=== PATIENT | female | born 1985 | race Hispanic/Latino ===

== ENCOUNTER 2021-02-19 09:09 | Outpatient (CLI) | payer OTHER ==
[2021-02-19 21:46] LABS: SARS-CoV-2 PCR by NAA Not Detected (NotDetected)
== END 2021-02-19 09:10 | disposition home or self-care (01) ==
LOC: CSHLAB 09:09
PROVIDERS: ATTEND Family Medicine
DX: Z20.822 Contact with and (suspected) exposure to COVID-19 (principal)
CPT/HCPCS: U0003; U0005

== ENCOUNTER 2021-02-22 19:05 | Inpatient (IN) | payer MEDICAID, OTHER, SELFPAY ==
[~2021-02-22 19:05] MED LIST: Bupivacaine 0.25% HCL 30 ML VIAL ONE
[2021-02-22] MEDS ORDERED: Acetaminophen 500 MG TAB PO PRN (20:45)
[2021-02-22] MEDS ORDERED: Carboprost 250 MCG/ML AMP IM PRN (20:45)
[2021-02-22] MEDS ORDERED: Ondansetron PF 4 MG/2 ML Vial IVP PRN ×2 (20:45→23:21)
[2021-02-22] MEDS ORDERED: Misoprostol 200 MCG TAB PR PRN (20:45)
[2021-02-22] MEDS ORDERED: hydrALAZINE 20 MG/ML VIAL SLOW IVP PRN (20:45)
[2021-02-22] MEDS ORDERED: NS w/ Oxytocin 30 units 500 ML IV SCH (20:45)
[2021-02-22] MEDS ORDERED: NS w/ Oxytocin 30 units 500 ML IVPB SCH (20:45)
[2021-02-22] MEDS ORDERED: Methylergonovine 0.2 MG/ML VIAL IM PRN (20:45)
[2021-02-22] MEDS ORDERED: Lidocaine 1% (PF) 30 ML VIAL SC PRN (20:45)
[2021-02-22] MEDS ORDERED: Misoprostol 100 MCG TAB VAG SCH ×2 (20:45)
[2021-02-22] MEDS ORDERED: Ibuprofen 800 MG TAB PO PRN (20:45)
[2021-02-22] MEDS ORDERED: Promethazine HCl 25 MG/ML VIAL IM PRN ×2 (20:45→23:21)
[2021-02-22] MEDS: Lactated Ringer's 1,000 ML IV SCH ×2 (20:45→23:01)
[2021-02-22] MEDS ORDERED: Butorphanol Tartrate 1 MG/ML VIAL SLOW IVP PRN (20:45)
[2021-02-22 21:23] LABS: Hemoglobin 12.5 g/dL (12.0-15.5); Mean Corpuscular HGB CONC 34.6 g/dL (32.0-36.0); Mean Corpuscular Hemoglobin 30.3 pg (27.0-33.0); Mean Corpuscular Volume 87.4 fl (81.6-98.3); Mean Platelet Volume 11.2 fl (7.4-10.4); Platelet Count 227 10x3/uL (150-450); RBC Distribution Width 14.1 % (11.5-14.5); Red Blood Cell (RBC) Count 4.13 10x6/uL (3.90-5.03); White Blood Cell (WBC) Count 6.3 10x3/uL (3.5-10.5)
[2021-02-22 21:41] VITALS: BMI 30.5
[2021-02-22 21:50] LABS: Hep B Surf Ag Non-Reactive S/CO (NonReactive); Syphilis Antibody Nonreactive (Nonreactive); Syphilis Antibody Index 0.03 S/CO (<1.00 Non-Reactive)
[2021-02-22 21:51] LABS: HBSAg Index 0.15 S/CO (0-0.99)
[2021-02-22] MEDS ORDERED: Fentanyl 2 mcg/Bup 0.1% Cadd 100 ML ONE (22:43)
[2021-02-22] MEDS ORDERED: Lactated Ringer's 500 ML IV PRN (23:21)
[2021-02-22] MEDS ORDERED: Acetaminophen 325 MG TAB PO PRN (23:21)
[2021-02-22] MEDS ORDERED: ePHEDrine Sulfate 50 MG/10 ML VIAL SLOW IVP PRN (23:21)
[2021-02-22] MEDS ORDERED: Hydrocerin (Eucerin) Cream 120 gm Jar TOP PRN (23:21)
[2021-02-22] MEDS ORDERED: diphenhydrAMINE 50 MG/ML VIAL IVP PRN (23:21)
[2021-02-22] MEDS ORDERED: Naloxone HCl 0.4 mg/ml Vial IVP PRN ×2 (23:21)
[2021-02-22] MEDS ORDERED: Communication Order-Pharmacy FS SCH (23:30)
[2021-02-22] MEDS ORDERED: Fentanyl 2 mcg/Bupivacaine 0.1% Cassette 100 ML EPIDURAL SCH (23:30)
[2021-02-23] MEDS: Lactated Ringer's 1,000 ML IV SCH (07:03)
[2021-02-23] MEDS: NS w/ Oxytocin 30 units 500 ML IV SCH ×2 (14:52→15:36)
[2021-02-23] MEDS ORDERED: NS w/ Oxytocin 30 units 500 ML IV SCH (16:16)
[2021-02-23] MEDS ORDERED: Preparation H Ointment 28 GM TUBE PR PRN (16:16)
[2021-02-23] MEDS ORDERED: Lanolin Ointment 7 GM TUBE TOP PRN (16:16)
[2021-02-23] MEDS ORDERED: hydrALAZINE 20 MG/ML VIAL SLOW IVP PRN (16:16)
[2021-02-23] MEDS ORDERED: Misoprostol 200 MCG TAB VAG PRN (16:16)
[2021-02-23] MEDS ORDERED: diphenhydrAMINE 25 MG CAP PO PRN (16:16)
[2021-02-23] MEDS ORDERED: Milk Of Magnesia 30 ML UDCUP PO PRN (16:16)
[2021-02-23] MEDS ORDERED: Boostrix 0.5 ML (Tdap) VIAL IM ONE (16:16)
[2021-02-23] MEDS ORDERED: Ondansetron PF 4 MG/2 ML Vial IVP PRN (16:16)
[2021-02-23] MEDS ORDERED: Benzocaine-Menthol 82.5 ML CAN TOP PRN (16:16)
[2021-02-23] MEDS ORDERED: Bisacodyl 10 MG SUPP PR PRN (16:16)
[2021-02-23] MEDS ORDERED: Ibuprofen 800 MG TAB PO SCH ×2 (17:45→22:00)
[2021-02-23] MEDS: Ferrous Sulfate 325 MG TAB PO SCH (17:52)
[2021-02-23] MEDS ORDERED: Lidocaine 2% Viscous Solution 10 ML, Aluminum & Magnesium Hydroxide 30 ML SSW SCH (20:30)
[2021-02-23] MEDS: Docusate Calcium (SURFAK) 240 MG CAP PO SCH (21:28)
[2021-02-23] MEDS ORDERED: Calcium Carbonate 500 MG ChewTAB PO PRN (21:40)
[2021-02-24] MEDS: Ibuprofen 800 MG TAB PO SCH ×2 (00:55→08:34)
[2021-02-24 07:12] LABS: Hemoglobin 10.8 g/dL (12.0-15.5); Mean Corpuscular HGB CONC 34.1 g/dL (32.0-36.0); Mean Corpuscular Hemoglobin 30.2 pg (27.0-33.0); Mean Corpuscular Volume 88.5 fl (81.6-98.3); Mean Platelet Volume 10.6 fl (7.4-10.4); Platelet Count 181 10x3/uL (150-450); RBC Distribution Width 13.8 % (11.5-14.5); Red Blood Cell (RBC) Count 3.58 10x6/uL (3.90-5.03); White Blood Cell (WBC) Count 9.5 10x3/uL (3.5-10.5)
[2021-02-24] MEDS: Docusate Calcium (SURFAK) 240 MG CAP PO SCH (08:34)
[2021-02-24] MEDS: Ferrous Sulfate 325 MG TAB PO SCH ×2 (08:35→16:08)
[2021-02-24] MEDS ORDERED: Prenatal Vitamin 1 TAB PO SCH (09:00)
[2021-02-24 13:18] VITALS: BP 105/64; TEMP 98.1
== END 2021-02-24 17:45 | disposition home or self-care (01) | DRG 806 ==
LOC: CSHLD 19:05 → CSHPP 02-23 17:55
PROVIDERS: ADMIT Family Medicine; ATTEND Family Medicine
PROC: 10E0XZZ Delivery of Products of Conception, External Approach (ICD-10-PCS; principal; 2021-02-23)
PROC: 3E033VJ Introduction of Other Hormone into Peripheral Vein, Percutaneous Approach (ICD-10-PCS; 2021-02-23)
DX: O40.3XX0 Polyhydramnios, third trimester, not applicable or unspecified (principal); O44.03 Complete placenta previa NOS or without hemorrhage, third trimester; Z37.0 Single live birth; Z3A.39 39 weeks gestation of pregnancy
CPT/HCPCS: 36415; 51702; 76815; 85027; 86780; 86850; 86900; 86901; 87340; 88307; J2210; J2405; J2590; S0020